=== PATIENT | male | born 1995 | race African-American/Black ===

== ENCOUNTER 2021-05-04 09:09 | Emergency (ER) | payer MEDICAID ==
[~2021-05-04] VITALS: Ht 180.3 cm; Wt 82.0 kg
[2021-05-04 09:24] VITALS: BP 144/73
[2021-05-04] MEDS ORDERED: IBUP-2029 MT (10:39)
== END 2021-05-04 10:55 | disposition home or self-care (01) ==
LOC: ER 09:09
DX: H61.21 Impacted cerumen, right ear (principal); B07.0 Plantar wart; R03.0 Elevated blood-pressure reading, without diagnosis of hypertension
CPT/HCPCS: 69210; 99284

== ENCOUNTER 2021-09-15 14:48 | Emergency (ER) | payer MEDICAID ==
[~2021-09-15] VITALS: Ht 180.3 cm; Wt 85.0 kg
[~2021-09-15 14:48] MED LIST: IBUP-2029 MT
[2021-09-15 14:54] VITALS: BP 118/82
[2021-09-15] MEDS ORDERED: ACETAMINOPHEN 325MG TABLET PO STA (17:18)
[2021-09-15 17:36] LABS: BASOPHILS % 0.9 % (0.0-2.0); EOSINOPHILS % 2.7 % (0.0-5.0); HEMATOCRIT. 44.7 % (42.0-52.0); HEMOGLOBIN. 15.2 g/dL (14.0-18.0); LYMPHOCYTES % 36.6 % (20.0-50.0); MEAN CORPUSCULAR HEMOGLOBIN 31.2 pg (28.0-32.0); MEAN CORPUSCULAR VOLUME 91.5 fL (80.0-94.0); MEAN PLATELET VOLUME 7.9 fl (7.4-10.4); MONOCYTES % 8.3 % (2.0-8.0); NEUTROPHILS % 51.5 % (40.0-76.0); PLATELET 218 x1000/uL (130-400); RED BLOOD CELL COUNT 4.88 mill/uL (4.7-6.1); RED CELL DISTRIBUTION WIDTH 14.2 % (11.6-14.6)
[2021-09-15 17:40] LABS: CHLORIDE 106 mEq/L (98-107)
[2021-09-15] MEDS ORDERED: NAPR-681 PO (18:04)
== END 2021-09-15 18:35 | disposition home or self-care (01) ==
LOC: ER 14:48
DX: R51.9 Headache, unspecified (principal); L84 Corns and callosities
CPT/HCPCS: 36415; 80048; 85025; 99283

== ENCOUNTER 2023-03-01 14:04 | Emergency (ER) | payer MEDICAID ==
[~2023-03-01] VITALS: Ht 180.3 cm; Wt 82.0 kg
[~2023-03-01 14:04] MED LIST changes: +NAPR-681 PO
[2023-03-01] MEDS ORDERED: ACETAMINOPHEN 325MG TABLET PO ONE (16:30)
[2023-03-01] MEDS ORDERED: IBUPROFEN 400MG TABLET PO ONE (16:30)
[2023-03-01] MEDS ORDERED: ACET-2708 MT (16:31)
[2023-03-01] MEDS ORDERED: IBUP-2028 MT (16:31)
[2023-03-01] MEDS ORDERED: NIZOS TP (16:31)
[2023-03-01 16:49] VITALS: BP 120/79
== END 2023-03-01 17:02 | disposition home or self-care (01) ==
LOC: ER 14:55
DX: G44.209 Tension-type headache, unspecified, not intractable (principal); B35.0 Tinea barbae and tinea capitis
CPT/HCPCS: 99283

== ENCOUNTER 2024-09-11 06:14 | Emergency (ER) | payer MEDICAID ==
[~2024-09-11] VITALS: Ht 180.3 cm; Wt 82.0 kg
[~2024-09-11 06:14] MED LIST changes: +ACET-2708 MT; +IBUP-2028 MT; +NIZOS TP
[2024-09-11 06:21] VITALS: O2SAT 99
[2024-09-11 06:42] VITALS: BP 114/73; PULSE 83; RESP 20; TEMP 97.8; O2SAT 97
[2024-09-11] MEDS ORDERED: CARB-274 EACH EAR (08:20)
== END 2024-09-11 08:32 | disposition home or self-care (01) ==
LOC: ER 06:14
DX: H61.21 Impacted cerumen, right ear (principal); Z79.899 Other long term (current) drug therapy
CPT/HCPCS: 69209; 99283; Z7610; 69210